=== PATIENT | female | born 1975 | race Caucasian/White ===

== ENCOUNTER → 2016-05-24 | Outpatient (CLI) | payer MEDICAID ==
[~2016-05-24] MED LIST: IBUP800T25 PO; PERCOCET PO; PRENAT PO
== END | disposition home or self-care (01) ==
LOC: PER 08:55
PROVIDERS: ATTEND Obstetrics & Gynecology
DX: O24.419 Gestational diabetes mellitus in pregnancy, unspecified control (principal); O35.9XX0 Maternal care for (suspected) fetal abnormality and damage, unspecified, not applicable or unspecified; O26.842 Uterine size-date discrepancy, second trimester; O09.512 Supervision of elderly primigravida, second trimester; Z3A.26 26 weeks gestation of pregnancy
CPT/HCPCS: 97804

== ENCOUNTER 2016-08-18 13:48 | Inpatient (IN) | payer MEDICAID ==
[2016-08-17 22:00] VITALS: BP 109/66; PULSE 86; RESP 19
[~2016-08-18] VITALS: Ht 152.4 cm; Wt 87.5 kg
[2016-08-18] MEDS ORDERED: LACTATED RINGER'S 1,000 ML IV SCH (14:39)
[2016-08-18 14:51] LABS: ADD SCAN DIFF NO
[2016-08-18 14:55] LABS: BASOPHILS % 0.3 % (0.0-2.0); EOSINOPHILS # 0.1 10^3/ul (0.0-0.5); EOSINOPHILS % 0.7 % (0.0-7.0); HEMATOCRIT 40.2 % (37.0-47.0); HEMOGLOBIN 13.7 g/dl (12.0-16.0); LYMPHOCYTES # 2.1 10^3/ul (0.8-2.9); LYMPHOCYTES % 18.8 % (15.0-51.0); MEAN CORPUSCULAR HEMOGLOBIN 31.8 pg (29.0-33.0); MEAN CORPUSCULAR HGB CONC 34.1 g/dl (32.0-37.0); MEAN CORPUSCULAR VOLUME 93.3 fl (82.0-101.0); MEAN PLATELET VOLUME 11.5 fl (7.4-10.4); MONOCYTE # 0.9 10^3/ul (0.3-0.9); MONOCYTES % 7.6 % (0.0-11.0); NEUTROPHILS % 71.3 % (39.0-77.0); PLATELET COUNT 249 10^3/UL (140-415); RED BLOOD COUNT 4.31 10^6/ul (4.20-5.40); RED CELL DISTRIBUTION WIDTH 13.2 % (11.5-14.5); WHITE BLOOD COUNT 11.2 10^3/ul (4.8-10.8)
[2016-08-18] MEDS ORDERED: OXYTOCIN 30 UNITS/LR 500 ML IV SCH (15:00)
[2016-08-18] MEDS ORDERED: OXYTOCIN 30 UNITS/LR 500 ML IV PRN ×2 (15:00→22:30)
[2016-08-18] MEDS ORDERED: METHYLERGONOVINE 0.2 MG INJ IM PRN ×2 (15:00→22:30)
[2016-08-18] MEDS ORDERED: MISOPROSTOL 200 MCG TAB PR PRN ×2 (15:00→22:30)
[2016-08-18] MEDS ORDERED: CARBOPROST 250 MCG INJ IM PRN ×2 (15:00→22:30)
[2016-08-18] MEDS ORDERED: CEFAZOLIN 2 GM/50 ML (PMX) 50 ML IV SCH (15:00)
[2016-08-18 15:09] LABS: INR 0.91; PROTIME 12.3 Sec (12.2-14.2)
[2016-08-18 15:10] LABS: PARTIAL THROMBOPLASTIN TIME 25.1 Sec (25.0-35.0)
[2016-08-18 15:37] VITALS: Ht 152.4 cm; Wt 87.5 kg
[2016-08-18 15:38] VITALS: BP 106/63; PULSE 72; RESP 18
[2016-08-18] MEDS ORDERED: CEFAZOLIN 1 GM INJ ONE (18:14)
[2016-08-18] MEDS ORDERED: NEOSTIGMINE 3 MG/3 ML SYRINGE ONE (18:14)
[2016-08-18] MEDS ORDERED: ROCURONIUM 50 MG INJ ONE (18:14)
[2016-08-18] MEDS ORDERED: GLYCOPYRROLATE 0.4 MG INJ ONE (18:14)
[2016-08-18] MEDS ORDERED: PROPOFOL 0 ML ONE (18:14)
[2016-08-18] MEDS ORDERED: FENTAnyl 50 MCG/ML VIAL ONE (18:15)
[2016-08-18] MEDS ORDERED: MIDAZOLAM 1 MG/ML 2 ML INJ ONE (18:15)
[2016-08-18] MEDS ORDERED: OXYTOCIN 10 UNIT INJ ONE (18:16)
[2016-08-18] MEDS ORDERED: morphine SULFATE/PF (10 MG/10 ML) INJ ONE (18:16)
[2016-08-18] MEDS ORDERED: PHENYLephrine (100 MCG/ML) 5ML SYG ONE (18:16)
[2016-08-18] MEDS ORDERED: METOCLOPRAMIDE 10 MG INJ ONE (18:16)
[2016-08-18] MEDS ORDERED: LACTATED RINGER'S 1,000 ML IV ONE (18:30)
[2016-08-18] MEDS ORDERED: MEPERIDINE 25 MG INJ IV PRN (19:30)
[2016-08-18] MEDS ORDERED: NALOXONE (0.4 MG/ML) INJ IV PRN (19:30)
[2016-08-18] MEDS ORDERED: TRIMETHOBENZAMIDE 100 MG/ML VIAL IM PRN (19:30)
[2016-08-18] MEDS ORDERED: EPHEDrine SULFATE 50 MG/5 ML SYG IV PRN (19:30)
[2016-08-18] MEDS ORDERED: morphine 2 MG INJ IV PRN ×2 (19:30)
[2016-08-18] MEDS ORDERED: LABETALOL HCL 20MG INJ IV PRN (19:30)
[2016-08-18] MEDS ORDERED: hydrALAzine 20 MG INJ IV PRN (19:30)
[2016-08-18] MEDS ORDERED: DIPHENHYDRAMINE 50 MG INJ IV PRN ×2 (19:30)
[2016-08-18] MEDS ORDERED: ONDANSETRON 4 MG INJ IV PRN ×2 (19:30)
[2016-08-18] MEDS ORDERED: HYDROmorphONE (0.2 MG/ML) 10ML SYG IV PRN ×3 (19:30)
[2016-08-18] MEDS ORDERED: FENTAnyl 50 MCG/ML VIAL IV PRN ×3 (19:30)
[2016-08-18] MEDS ORDERED: MIDAZOLAM 1 MG/ML 2 ML INJ IV PRN (19:30)
--- NOTE | 2016-08-18 19:36 | HP ---
Date/Time of Note Date/Time of Note DATE: 08/18/16 TIME: 19:32 OB - History Hx of Present Free Text/Dictation admitted for repeat C/S at 39 weeks in labor Last Menstrual Period: Nov 29, 2015 Estimated Due Date: August 25, 2016 : 4 Para: 2 Spontaneous : 1 Care: Good Care Ultrasounds: Normal mid trimester US Obstetrical Complications: Gestational Diabetes Medical Complications: None Past Family/Social History * Past Medical, Surgical, Family and Obstetric Histories reviewed from chart. Blood Type: A+ Rubella: immune RPR/VDRL: Negative GBS Status: Negative HBsAG: Negative OB Admission Exam Vital Signs Vital Signs Vital Signs Date Time Temp Pulse Resp B/P Pulse Ox O2 Delivery O2 Flow Rate FiO2 08/18/16 15:38 98.6 72 18 106/63 Room Air Physical Exam HEENT: WNL Heart: Rhythm Normal Lungs: Clear, Equal Abdomen: WNL Extremities: Normal Reflexes: Normal Cervical Dilatation: None Effacement: 0% Station: -3 Membranes: Intact Heart Rate: 130's Accelerations: Accelerations Present Varibility: Marked Contractions on Admission: 6-10 Minutes Apart Date/Time Contractions Began: ? Frequency of Contractions: ? Duration: ? Intensity: Mild Last 72 hours Lab Results CBC & BMP 08/18/16 14:30 OB Assessment/Plan Other Assessment: term gestation previous C/S X 2 labor pains Other plan: repeat C/S KATIE PAIGE MD August 18, 2016 19:36
--- NOTE | 2016-08-18 19:39 | OPR ---
Operative Report Planned Procedure Procedure date August 18, 2016 Procedure(s) 08/21/2016 Performed by: KATIE PAIGE MD Assisting provider: SUKI ANTOINE MD Anesthesiologist: Jonah Pandya M.D. Pre-procedure diagnosis term gestation previous C/S X 2 labor pains Anesthesia Type: spinal Procedure Description Under satisfactory anaesthesia a Pfannenstiel incision was made two fingerbreadth above and parallel to the symphysis of pubis around the previous scar and previous scar was removed Incision was extended laterally to the border of the Recti muscles on either sides. Incision was carried down with sharp and blunt dissection until fascia was reached. Anterior Recti muscle fascia was incised in mid portion and incision extended laterally to the border of skin incision. Fascia was mobilized from muscle superiorly and Recti muscles were from midline using sharp and blunt dissection. Peritoneum was visualized; Avoiding bowel and bladder it was incised . Incision was extended superiorly and inferiorly. Bladder blade was placed. Posterior peritoneum covering the lower segment of the uterus and lower segment of the uterus were incised.Low transverse uterine incision was made on lower segment of the uterus. Incision extended laterally to the border of Round Lig. on either sides and baby was delivered from OT. position . Amniotic fluid appeared clear. Cord blood was obtained and cord had 3 vessels . Placenta was delivered spontaneously and appeared intact and complete. Intrauterine cavity was rubbed with a laparotomy sponge. Uterine incision was closed in 2 layers using running stitches of No1 Monocryl. Hemostasis appeared secure. Ovaries and Fallopian tubes were within normal limits. Announcing needle, lap sponge and instrument count to be correct abdomen was closed in layers as follows: Peritoneum and Recti muscles with running stitches of 20 Vicryl. Fascia with running stitch of No 1 PDS. Subcutaneous tissue with running stitches of 20 Chromic and skin was closed using roland. Patient tolerated the procedure well and was transferred to [facility] in good condition. Post-Procedure Post-procedure diagnosis S/P C/S Findings: Live Baby. Specimen removed: No Complications: None Pt Condition post procedure: stable Disposition: PACU Physician Certification I, the undersigned physician, hereby certify that I have discussed the procedure described in this consent form with this patient (or the patient's legal client service representative), including: * The risk and benefits of the procedure; * Any adverse reactions that may reasonably be expected to occur; * Any alternative efficacious methods of treatment which may be medically viable ; * The potential problems that may occur during recuperation; * Potential for blood transfusion and associated risks/benefits; and * Any research or economic interest I may have regarding this treatment. I further certify that the patient/legally responsible person was encouraged to ask question and that all questions were answered. KATIE PAIGE MD August 18, 2016 19:39
[2016-08-18] MEDS: KETOROLAC 30 MG INJ IV PRN (21:22)
--- NOTE | 2016-08-18 21:52 | DELSUM ---
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 Babies in Womb: 1 Attempted: No Labor Anesthesia: None LABOR INFORMATION Reason for Induction: Not Applicable Onset of Labor: 08/18/2016 02:00 Oxytocin: N/A Group B Beta Strep: Negative Antibiotics # of Doses: 1 Antibiotics Time of Last Dose: 08/18/2016 18:22 Steroids Given: None Reason Steroids Not Administered: Not Applicable MEMBRANES Membranes Rupture Method: Artificial Rupture of Membranes: 08/18/2016 18:55 Length of Rupture (hr): 0.00 Amniotic Fluid Color: Clear Amniotic Fluid Amount: Large Amniotic Fluid Odor: None STAGES OF LABOR Stage 3 hr: 0 Stage 3 min: 1 Total Time in Labor hr: 16 Total Time in Labor min: 56 CSECTION DELIVERY Primary Indication: Repeat Elective Secondary Indication: N/A CSection Urgency: Elective CSection Incidence: Repeat Labor: Labor Elective: Elective CSection Incision: Lower Uterine Transverse BABY A INFORMATION Delivery Date/Time: 08/18/2016 18:55 Method of Delivery: Born in Route : No : N/A Forceps: N/A Vacuum Extraction: N/A Shoulder Dystocia : N/A SHOULDER DYSTOCIA BABY A Infant Delivery Date/Time: 08/18/2016 18:55 PRESENTATION/POSITION BABY A Presentation: Cephalic Cephalic Presentation: Vertex Breech Presentation: N/A PLACENTA INFORMATION BABY A Placenta Delivery Time : 08/18/2016 18:56 Placenta Method of Delivery: Manual Removal Placenta Status: Delivered SCORES BABY A Heart Rate 1 min: >100 bpm Resp Effort 1 min: Good Cry Reflex Irritability 1 min: Cough/Sneeze/Pulls Away Muscle Tone 1 min: Active Motion Color 1 min: Blue/Pale Resuscitation Effort 1 min: Tactile Stimulation SCORE 1 MIN: 8 Heart Rate 5 min: >100 bpm Resp Effort 5 min: Good Cry Reflex Irritability 5 min: Cough/Sneeze/Pulls Away Muscle Tone 5 min: Active Motion Color 5 min: Body [place], Extremit Blue Resuscitation Effort 5 min: N/A SCORE 5 MIN: 9 INFORMATION BABY A Gestational Age at Delivery: 39.0 Gestational Status: Full Term- 39- 40.6 Weeks Outcome : Liveborn Infant Condition : Stable Infant Sex: Male IDENTIFICATION/MEDS BABY A ID Band Number: [id number] ID Band Location: Right Leg; Left Arm Sensor Applied: Yes Sensor Number: [id number] Sensor Location : Cord Clamp Vitamin K Given : Not Given Erythromycin Given: Not Given WEIGHT/LENGTH BABY A Infant Birthweight (gm): 3360 Infant Weight (lb): 7 Infant Weight (oz): 7 Infant Length (in): 19.00 Infant Length (cm): 48.26 CORD INFORMATION BABY A No. Cord Vessels: 3 Nuchal Cord : N/A True Knot: 0 Cord Blood Taken: Yes Suction: Mouth; Nose ASSESSMENT BABY A Complications: None Physical Findings at Delivery: Within Normal Limits Physical Findings- Other: RASH OF ON CHEST Respirations: Appears Normal Caustic Plant Worker/ALS Called : No Infant Care By: Barbara DE [employer]/ RAMON [employer] RN Transferred To: Remains with Mother
[2016-08-18 22:15] VITALS: BP 99/60; PULSE 83; RESP 18
[2016-08-18] MEDS ORDERED: LANOLIN 7 GM TUBE TOP PRN (22:30)
[2016-08-18] MEDS ORDERED: ACETAMINOPHEN/CODEINE #3 TAB PO PRN (22:30)
[2016-08-18] MEDS ORDERED: NA PHOSPHATE/BIPHOS 133 ML ENEMA PR PRN (22:30)
[2016-08-18] MEDS: CEFAZOLIN 2 GM/50 ML (PMX) 50 ML IV SCH (23:46)
[2016-08-18] MEDS: LACTATED RINGER'S 1,000 ML IV SCH (23:47)
[2016-08-19] VITALS: BP 88/47; PULSE 76; RESP 18
[2016-08-19 04:00] VITALS: BP 87/49; PULSE 76; RESP 18
[2016-08-19] MEDS: CLINDAMYCIN 300 MG CAP PO SCH ×5 (06:00→23:37)
[2016-08-19] MEDS: CEFAZOLIN 2 GM/50 ML (PMX) 50 ML IV SCH ×2 (06:47→14:54)
[2016-08-19 07:30] VITALS: BP 86/51; PULSE 74; RESP 18
[2016-08-19] MEDS: ACCU-CHEK XX SCH ×3 (07:30→13:50)
[2016-08-19 08:09] LABS: ADD SCAN DIFF NO
[2016-08-19 08:13] LABS: BASOPHILS % 0.2 % (0.0-2.0); EOSINOPHILS # 0.1 10^3/ul (0.0-0.5); EOSINOPHILS % 0.7 % (0.0-7.0); HEMATOCRIT 30.3 % (37.0-47.0); HEMOGLOBIN 10.1 g/dl (12.0-16.0); LYMPHOCYTES # 1.6 10^3/ul (0.8-2.9); LYMPHOCYTES % 19.1 % (15.0-51.0); MEAN CORPUSCULAR HEMOGLOBIN 31.8 pg (29.0-33.0); MEAN CORPUSCULAR HGB CONC 33.3 g/dl (32.0-37.0); MEAN CORPUSCULAR VOLUME 95.3 fl (82.0-101.0); MEAN PLATELET VOLUME 11.3 fl (7.4-10.4); MONOCYTE # 0.8 10^3/ul (0.3-0.9); MONOCYTES % 9.4 % (0.0-11.0); NEUTROPHIL # 5.9 10^3/ul (1.6-7.5); NEUTROPHILS % 69.7 % (39.0-77.0); PLATELET COUNT 187 10^3/UL (140-415); RED BLOOD COUNT 3.18 10^6/ul (4.20-5.40); RED CELL DISTRIBUTION WIDTH 13.3 % (11.5-14.5); WHITE BLOOD COUNT 8.5 10^3/ul (4.8-10.8)
[2016-08-19] MEDS: LACTATED RINGER'S 1,000 ML IV SCH ×2 (08:44→16:51)
[2016-08-19] MEDS ORDERED: BISACODYL 10 MG SUPP PR ONE (10:00)
--- NOTE | 2016-08-19 12:02 | PN ---
Date/Time of Note Date/Time of Note DATE: 08/19/16 TIME: 12:00 Assessment/Plan VTE Prophylaxis VTE Prophylaxis Intervention: ambulation Lines/Catheters IV Catheter Type (from Nrsg): Peripheral IV Assessment/Plan Assessment/Plan S/P C/S POD # 1 will advance diet and ambulate Subjective 24 Hr Interval Summary No BM passing flatus Constitutional: BM, ambulates, flatus, improved, no complaints, urine output Pain Control: well controlled Exam/Review of Systems Vital Signs Vitals Vital Signs Date Time Temp Pulse Resp B/P Pulse Ox O2 Delivery O2 Flow Rate FiO2 08/19/16 07:30 98.3 74 18 86/51 Room Air 08/19/16 04:27 96 21 Intake and Output 08/18/16 08/18/16 08/19/16 15:00 23:00 07:00 Intake Total 1400 ml Output Total 2800 ml 1550 ml Balance -1400 ml -1550 ml Exam Free Text/Dictation Abdomen: soft BS + Incision: covered Constitutional: alert, oriented, well developed Psych: nl mood/affect, no complaints Head: atraumatic, normocephalic Eyes: EOMI, nl conjunctiva, nl lids, nl sclera ENMT: mucosa pink and moist, nl external ears & nose, nl lips & teeth, nl nasal mucosa & septum Neck: non-tender, supple Respiratory: clear to auscultation, normal air movement Cardiovascular: nl pulses, regular rate and rhythm Gastrointestinal: nl liver, spleen, non-tender, soft Drains None Musculoskeletal: nl extremities to inspection, nl gait and stance Extremities: normal pulses Neurological: CARDIAC NURSE SPECIALIST II-XII intact, nl mental status, nl speech, nl strength Skin: nl turgor, rash or lesions Lymph: nl lymph nodes Results Result Diagram: 08/19/16 0734 KATIE PAIGE MD August 19, 2016 12:01
[2016-08-19 16:00] VITALS: BP 93/62; PULSE 60; RESP 18
[2016-08-19] MEDS: KETOROLAC 30 MG INJ IV PRN (16:06)
[2016-08-19] MEDS ORDERED: Oxycodone/Acetamin (5/325) PO (18:04)
[2016-08-19] MEDS ORDERED: IBUP800T25 PO (18:04)
--- NOTE | 2016-08-19 18:04 | PD.PPDC ---
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
[2016-08-19 19:30] VITALS: BP 100/66; PULSE 76; RESP 18
[2016-08-19] MEDS: IBUPROFEN 800 MG TAB PO SCH (21:20)
[2016-08-19] MEDS: SENNA/DOCUSATE NA (8.6MG/50MG) TAB PO SCH (21:20)
[2016-08-20 04:03] VITALS: BP 90/55; PULSE 68; RESP 18
[2016-08-20] MEDS: OXYCODONE/ACETAMINOPHEN (5/325) TAB PO PRN ×2 (04:03→17:49)
[2016-08-20] MEDS: IBUPROFEN 800 MG TAB PO SCH ×3 (06:07→21:18)
[2016-08-20] MEDS: CLINDAMYCIN 300 MG CAP PO SCH ×4 (06:07→23:54)
[2016-08-20 08:10] VITALS: BP 101/58; PULSE 67; RESP 18
[2016-08-20] MEDS: SENNA/DOCUSATE NA (8.6MG/50MG) TAB PO SCH ×2 (09:15→21:18)
[2016-08-20 15:45] VITALS: BP 99/56; PULSE 61; RESP 18
[2016-08-20 19:45] VITALS: BP 122/71; PULSE 72; RESP 18
[2016-08-21] MEDS: OXYCODONE/ACETAMINOPHEN (5/325) TAB PO PRN ×2 (03:28→12:44)
[2016-08-21 04:27] VITALS: BP 115/66; PULSE 70; RESP 18
[2016-08-21] MEDS: CLINDAMYCIN 300 MG CAP PO SCH ×2 (05:48→12:44)
[2016-08-21] MEDS: IBUPROFEN 800 MG TAB PO SCH ×2 (05:49→14:00)
[2016-08-21 08:30] VITALS: BP 107/70; PULSE 71; RESP 16
[2016-08-21] MEDS ORDERED: DIPHTH/TET/ACEL PERTUSS (ADULT) 0.5 ML VIAL IM* ONE (09:00)
[2016-08-21] MEDS ORDERED: MEASLES,MUMPS,RUBELLA VACCINE INJ SC* ONE (09:00)
[2016-08-21] MEDS: SENNA/DOCUSATE NA (8.6MG/50MG) TAB PO SCH (12:44)
== END 2016-08-21 15:51 | disposition home or self-care (01) | DRG 766 ==
LOC: L-D 13:48 → PP1 22:01
PROVIDERS: ADMIT Obstetrics & Gynecology; ATTEND Obstetrics & Gynecology
PROC: 10D00Z1 Extraction of Products of Conception, Low, Open Approach (ICD-10-PCS; principal; 2016-08-18 17:30)
DX: O34.211 Maternal care for low transverse scar from previous cesarean delivery (principal); O24.429 Gestational diabetes mellitus in childbirth, unspecified control; Z3A.39 39 weeks gestation of pregnancy; Z37.0 Single live birth
CPT/HCPCS: 82962; 83036; 85025; 85610; 85730; 86592; 86850; 86900; 86901; 90715; 94760; 99464; J0690; J1885; J2175; J2250; J2270; J2274; J2370; J2590; J2710; J2765; J3010; J7120